=== PATIENT | female | born 1980 | race Caucasian/White ===

== ENCOUNTER 2016-08-11 18:36 | Emergency (ER) | payer OTHER | END 2016-08-11 21:10 | disposition home or self-care (01) | LOC: FER 18:36 | DX: J02.9 Acute pharyngitis, unspecified (principal); Z87.09 Personal history of other diseases of the respiratory system | CPT/HCPCS: 87450; J0561; J1100; J1885 ==

== ENCOUNTER 2020-06-29 11:36 | Emergency (ER) | payer OTHER ==
[~2020-06-29 11:36] MED LIST: ASPIRIN325 M1 PO; BACLOFEN 10MG T10 MG PO; BENTYL10 MG PO; NITROGLYCERIN0.4 MG SL
[2020-06-29 12:33] LABS: BILIRUBIN NEGATIVE (NEGATIVE); BLOOD NEGATIVE Ery/uL (NEGATIVE); CLARITY CLEAR (CLEAR); COLOR YELLOW (YELLOW); GLUCOSE (U) NORMAL (NORMAL); LEUKOCYTES NEGATIVE Leu/uL (NEGATIVE); NITRITE NEGATIVE (NEGATIVE); PROTEIN NEGATIVE (NEGATIVE); SPECIFIC GRAVITY 1.025 (1.001-1.030); UROBILINOGEN 0.2 mg/dL (0.2-1.0)
[2020-06-29 12:55] LABS: BASOPHIL 0.5 % (0-2); EOSINOPHIL 0.7 % (0-5); HCT 42.7 % (37.0-47.0); HGB 14.4 g/dl (12.5-16.0); LYMPHOCYTE 32.2 % (15-48); MCH 30.3 pg (25.0-31.0); MCHC 33.7 g/dL (32.0-36.0); MCV 89.7 fL (78.0-100.0); MONOCYTE 6.3 % (0-12); MPV 10.6 fL (6.0-9.5); NEUTROPHIL 60.2 % (41-80); NRBC 0; PLT 270 K/uL (150-400); RBC 4.76 M/uL (4.20-5.40); RDW 12.5 % (11.5-14.0); WBC 7.3 K/uL (4.0-10.5)
[2020-06-29 13:20] LABS: ALBUMIN 3.5 g/dL (3.4-5.0); BILIRUBIN - TOTAL 0.5 mg/dL (0.2-1.0); BUN/CREAT RATIO (CALC) 13.7 RATIO; CREATININE 0.73 mg/dL (0.51-0.95); GLOBULIN (CALCULATION) 3.3 g/dL; POTASSIUM 3.8 mmol/L (3.5-5.1); TOTAL PROTEIN 6.8 g/dL (6.4-8.2)
[2020-06-29] MEDS ORDERED: NAPROXEN500 MG PO (13:27)
[2020-06-29] MEDS ORDERED: ROBAXIN500 MG PO (13:27)
== END 2020-06-29 14:04 | disposition home or self-care (01) ==
LOC: FER 11:36
PROVIDERS: Emergency Medicine
DX: R10.12 Left upper quadrant pain (principal); R10.32 Left lower quadrant pain; M54.9 Dorsalgia, unspecified; R11.0 Nausea; M47.816 Spondylosis without myelopathy or radiculopathy, lumbar region; E66.9 Obesity, unspecified; I10 Essential (primary) hypertension; Z96.0 Presence of urogenital implants; Z87.442 Personal history of urinary calculi
CPT/HCPCS: 36415; 80053; 81003; 83690; 85025; J2270; J2405; J7030

== ENCOUNTER 2020-09-27 18:05 | Day surgery (SDCO) | payer OTHER ==
[~2020-09-27] VITALS: Ht 157.5 cm; Wt 90.7 kg
[~2020-09-27 18:05] MED LIST changes: +NAPROXEN500 MG PO; +ROBAXIN500 MG PO
[2020-09-27 19:42] LABS: BASOPHIL 0.4 % (0-2); EOSINOPHIL 0.6 % (0-5); HCT 40.9 % (37.0-47.0); HGB 14.1 g/dl (12.5-16.0); LYMPHOCYTE 26.3 % (15-48); MCH 31.4 pg (25.0-31.0); MCHC 34.5 g/dL (32.0-36.0); MCV 91.1 fL (78.0-100.0); MONOCYTE 6.5 % (0-12); MPV 10.1 fL (6.0-9.5); NEUTROPHIL 65.8 % (41-80); NRBC 0; PLT 284 K/uL (150-400); RBC 4.49 M/uL (4.20-5.40); RDW 12.6 % (11.5-14.0); WBC 12.6 K/uL (4.0-10.5)
[2020-09-27 19:56] LABS: BILIRUBIN NEGATIVE (NEGATIVE); BLOOD NEGATIVE Ery/uL (NEGATIVE); CLARITY CLEAR (CLEAR); COLOR YELLOW (YELLOW); GLUCOSE (U) NORMAL (NORMAL); LEUKOCYTES NEGATIVE Leu/uL (NEGATIVE); NITRITE NEGATIVE (NEGATIVE); PROTEIN NEGATIVE (NEGATIVE); SPECIFIC GRAVITY 1.025 (1.001-1.030); UROBILINOGEN 0.2 mg/dL (0.2-1.0)
[2020-09-27 20:00] LABS: ALBUMIN 3.7 g/dL (3.4-5.0); BILIRUBIN - TOTAL 0.5 mg/dL (0.2-1.0); BUN/CREAT RATIO (CALC) 24.7 RATIO; CREATININE 0.81 mg/dL (0.51-0.95); POTASSIUM 4.3 mmol/L (3.5-5.1); TOTAL PROTEIN 7.7 g/dL (6.4-8.2)
[2020-09-27] MEDS ORDERED: BACLOFEN 10MG T10 MG PO (23:53)
[2020-09-27] MEDS ORDERED: PRINIVIL20 MG PO (23:53)
[2020-09-28 05:51] LABS: BASOPHIL 0.4 % (0-2); EOSINOPHIL 1.4 % (0-5); HCT 37.1 % (37.0-47.0); HGB 12.6 g/dl (12.5-16.0); MCH 30.6 pg (25.0-31.0); MONOCYTE 6.4 % (0-12); MPV 10.7 fL (6.0-9.5); NEUTROPHIL 56.6 % (41-80); NRBC 0; PLT 233 K/uL (150-400); RBC 4.12 M/uL (4.20-5.40); RDW 12.5 % (11.5-14.0)
[2020-09-28 06:17] LABS: ALBUMIN 2.8 g/dL (3.4-5.0); BILIRUBIN - TOTAL 0.6 mg/dL (0.2-1.0); BUN/CREAT RATIO (CALC) 24.6 RATIO; CREATININE 0.69 mg/dL (0.51-0.95); GLOBULIN (CALCULATION) 3.3 g/dL; MAGNESIUM 1.7 mg/dL (1.8-2.4); POTASSIUM 3.9 mmol/L (3.5-5.1); TOTAL PROTEIN 6.1 g/dL (6.4-8.2)
[2020-09-29] MEDS ORDERED: PEPCID AC20 MG PO (08:21)
[2020-09-29] MEDS ORDERED: CARAFATE1 GM PO (08:21)
[2020-09-29] MEDS ORDERED: LIPITOR20 MG PO (08:21)
== END 2020-09-29 09:43 | disposition home or self-care (01) ==
LOC: FER 18:05 → FMS 21:56
PROVIDERS: Emergency Medicine; Nurse Practitioner; ADMIT Internal Medicine
DX: K85.90 Acute pancreatitis without necrosis or infection, unspecified (principal); E78.00 Pure hypercholesterolemia, unspecified; I10 Essential (primary) hypertension; N83.201 Unspecified ovarian cyst, right side; Z79.899 Other long term (current) drug therapy; Z87.442 Personal history of urinary calculi; Z20.822 Contact with and (suspected) exposure to COVID-19
CPT/HCPCS: 36415; 76705; 80053; 80061; 81003; 82150; 83605; 83690; 83735; 84100; 85025; 93005; 94010; C9113; G0378; G0480; J1170; J1885; J2405; J3475; J7030; Q9967; U0002

== ENCOUNTER 2020-11-27 13:36 | Emergency (ER) | payer OTHER ==
[~2020-11-27 13:36] MED LIST changes: +CARAFATE1 GM PO; +LIPITOR20 MG PO; +PEPCID AC20 MG PO; +PRINIVIL20 MG PO
[2020-11-27 14:32] LABS: BASOPHIL 0.5 % (0-2); EOSINOPHIL 0.7 % (0-5); HCT 43.1 % (37.0-47.0); HGB 14.2 g/dl (12.5-16.0); MCH 30.3 pg (25.0-31.0); MCHC 32.9 g/dL (32.0-36.0); MCV 92.1 fL (78.0-100.0); MONOCYTE 5.6 % (0-12); NEUTROPHIL 57.1 % (41-80); NRBC 0; PLT 321 K/uL (150-400); RBC 4.68 M/uL (4.20-5.40); RDW 12.4 % (11.5-14.0); WBC 8.6 K/uL (4.0-10.5)
[2020-11-27 14:37] LABS: INR 1.05 (0.9-1.2); PROTHROMBIN TIME 13.1 SECONDS (11.8-13.4); PTT 26.1 SECONDS (24.4-34.7)
[2020-11-27 14:42] LABS: ALBUMIN 3.6 g/dL (3.4-5.0); BILIRUBIN - TOTAL 0.5 mg/dL (0.2-1.0); BUN/CREAT RATIO (CALC) 25.3 RATIO; CREATININE 0.75 mg/dL (0.51-0.95); GLOBULIN (CALCULATION) 4.1 g/dL; POTASSIUM 4.2 mmol/L (3.5-5.1); TOTAL PROTEIN 7.7 g/dL (6.4-8.2)
[2020-11-27] MEDS ORDERED: ULTRAM50 MG PO (16:26)
[2020-11-27 16:36] LABS: BILIRUBIN NEGATIVE (NEGATIVE); BLOOD NEGATIVE Ery/uL (NEGATIVE); CLARITY CLEAR (CLEAR); COLOR YELLOW (YELLOW); GLUCOSE (U) NORMAL (NORMAL); LEUKOCYTES NEGATIVE Leu/uL (NEGATIVE); NITRITE NEGATIVE (NEGATIVE); PROTEIN NEGATIVE (NEGATIVE); SPECIFIC GRAVITY 1.025 (1.001-1.030); UROBILINOGEN 0.2 mg/dL (0.2-1.0)
== END 2020-11-27 17:23 | disposition home or self-care (01) ==
LOC: FER 13:36
PROVIDERS: Emergency Medicine
DX: R10.84 Generalized abdominal pain (principal); R11.2 Nausea with vomiting, unspecified
CPT/HCPCS: 36415; 80053; 81003; 83690; 85025; 85610; 85730; J1170; J2405; J7030

== ENCOUNTER 2020-12-01 14:11 | Emergency (ER) | payer OTHER ==
[~2020-12-01 14:11] MED LIST changes: +ULTRAM50 MG PO
[2020-12-01 16:08] LABS: BASOPHIL 0.4 % (0-2); EOSINOPHIL 0.6 % (0-5); HCT 43.3 % (37.0-47.0); HGB 14.1 g/dl (12.5-16.0); LYMPHOCYTE 35.8 % (15-48); MCH 30.4 pg (25.0-31.0); MCHC 32.6 g/dL (32.0-36.0); MCV 93.3 fL (78.0-100.0); MONOCYTE 5.7 % (0-12); MPV 10.2 fL (6.0-9.5); NEUTROPHIL 57.4 % (41-80); NRBC 0; PLT 337 K/uL (150-400); RBC 4.64 M/uL (4.20-5.40); RDW 12.7 % (11.5-14.0); WBC 8.5 K/uL (4.0-10.5)
[2020-12-01 16:10] LABS: BILIRUBIN NEGATIVE (NEGATIVE); BLOOD NEGATIVE Ery/uL (NEGATIVE); CLARITY CLEAR (CLEAR); COLOR YELLOW (YELLOW); GLUCOSE (U) NORMAL (NORMAL); LEUKOCYTES NEGATIVE Leu/uL (NEGATIVE); NITRITE NEGATIVE (NEGATIVE); PROTEIN NEGATIVE (NEGATIVE); SPECIFIC GRAVITY 1.025 (1.001-1.030); UROBILINOGEN 0.2 mg/dL (0.2-1.0)
[2020-12-01 16:22] LABS: ALBUMIN 3.7 g/dL (3.4-5.0); BILIRUBIN - TOTAL 0.5 mg/dL (0.2-1.0); BUN/CREAT RATIO (CALC) 22.7 RATIO; CREATININE 0.66 mg/dL (0.51-0.95); GLOBULIN (CALCULATION) 3.9 g/dL; POTASSIUM 4.6 mmol/L (3.5-5.1); TOTAL PROTEIN 7.6 g/dL (6.4-8.2)
== END 2020-12-01 17:12 | disposition home or self-care (01) ==
LOC: FER 14:11
PROVIDERS: Nurse Practitioner Family
DX: R10.32 Left lower quadrant pain (principal); R11.0 Nausea; I10 Essential (primary) hypertension; Z87.442 Personal history of urinary calculi
CPT/HCPCS: 36415; 80053; 81003; 82150; 83690; 85025; J1885; J7030

== ENCOUNTER 2021-01-03 11:45 | Emergency (ER) | payer OTHER ==
[2021-01-03 12:19] LABS: BASOPHIL 0.2 % (0-2); EOSINOPHIL 0 % (0-5); HCT 46.8 % (37.0-47.0); HGB 15.4 g/dl (12.5-16.0); LYMPHOCYTE 14.7 % (15-48); MCH 30.1 pg (25.0-31.0); MCHC 32.9 g/dL (32.0-36.0); MCV 91.6 fL (78.0-100.0); MONOCYTE 3.1 % (0-12); MPV 10.4 fL (6.0-9.5); NEUTROPHIL 81.7 % (41-80); NRBC 0; PLT 171 K/uL (150-400); RBC 5.11 M/uL (4.20-5.40); RDW 12.9 % (11.5-14.0); WBC 6.4 K/uL (4.0-10.5)
[2021-01-03 12:39] LABS: BILIRUBIN 1+ mg/dL (NEGATIVE); BLOOD TRACE-INTACT Ery/uL (NEGATIVE); CLARITY CLEAR (CLEAR); COLOR YELLOW (YELLOW); GLUCOSE (U) NORMAL (NORMAL); LEUKOCYTES NEGATIVE Leu/uL (NEGATIVE); NITRITE NEGATIVE (NEGATIVE); PROTEIN 2+ mg/dL (NEGATIVE); UROBILINOGEN 0.2 mg/dL (0.2-1.0)
[2021-01-03 12:49] LABS: BACTERIA 3+; SQUAMOUS EPITHELIAL CELLS RARE
[2021-01-03 13:10] LABS: ALBUMIN 3.4 g/dL (3.4-5.0); BILIRUBIN - TOTAL 0.3 mg/dL (0.2-1.0); BUN/CREAT RATIO (CALC) 19.2 RATIO; C-REACTIVE PROTEIN 12.8 mg/dL (<=0.90); CREATININE 0.73 mg/dL (0.51-0.95); POTASSIUM 3.3 mmol/L (3.5-5.1); TOTAL PROTEIN 7.4 g/dL (6.4-8.2)
[2021-01-03] MEDS ORDERED: VIBRAMYCIN100 MG PO (16:31)
[2021-01-03] MEDS ORDERED: VENTOLIN HFA IN18 GM INH (16:31)
== END 2021-01-03 17:30 | disposition home or self-care (01) ==
LOC: FER 11:45
PROVIDERS: Nurse Practitioner Family
DX: U07.1 COVID-19 (principal); J12.82 Pneumonia due to coronavirus disease 2019; R07.89 Other chest pain; I10 Essential (primary) hypertension; Z23 Encounter for immunization
CPT/HCPCS: 36415; 71275; 80053; 81001; 82728; 84145; 84484; 85025; 85379; 86140; 87088; J1100; J7030; M0243; Q0244; Q9967

== ENCOUNTER 2021-07-13 16:01 | Emergency (ER) | payer OTHER ==
[~2021-07-13 16:01] MED LIST changes: +VENTOLIN HFA IN18 GM INH; +VIBRAMYCIN100 MG PO
[2021-07-13 17:10] LABS: BASOPHIL 0.5 % (0-2); EOSINOPHIL 0.8 % (0-5); HCT 40.4 % (37.0-47.0); HGB 13.5 g/dl (12.5-16.0); LYMPHOCYTE 30.8 % (15-48); MCH 30.4 pg (25.0-31.0); MCHC 33.4 g/dL (32.0-36.0); MONOCYTE 6.9 % (0-12); MPV 9.9 fL (6.0-9.5); NEUTROPHIL 60.8 % (41-80); NRBC 0; PLT 285 K/uL (150-400); RBC 4.44 M/uL (4.20-5.40); WBC 10.1 K/uL (4.0-10.5)
[2021-07-13 17:39] LABS: ALBUMIN 3.4 g/dL (3.4-5.0); BILIRUBIN - TOTAL 0.3 mg/dL (0.2-1.0); BUN/CREAT RATIO (CALC) 10.4 RATIO; CREATININE 0.77 mg/dL (0.51-0.95); GLOBULIN (CALCULATION) 3.8 g/dL; POTASSIUM 3.7 mmol/L (3.5-5.1); TOTAL PROTEIN 7.2 g/dL (6.4-8.2)
[2021-07-13 18:28] LABS: BILIRUBIN NEGATIVE (NEGATIVE); BLOOD 2+ Ery/uL (NEGATIVE); COLOR YELLOW (YELLOW); GLUCOSE (U) NORMAL (NORMAL); LEUKOCYTES NEGATIVE Leu/uL (NEGATIVE); NITRITE NEGATIVE (NEGATIVE); PROTEIN NEGATIVE (NEGATIVE); SPECIFIC GRAVITY >=1.030 (1.001-1.030); UROBILINOGEN 0.2 mg/dL (0.2-1.0)
[2021-07-13 18:34] LABS: CLARITY SLIGHTLY HAZY (CLEAR)
[2021-07-13 18:37] LABS: BACTERIA TRACE; CALCIUM OXALATE CRYSTALS TRACE; YEAST PRESENT
[2021-07-13] MEDS ORDERED: ONDANSETRON ODT4 MG PO (19:21)
== END 2021-07-13 19:45 | disposition home or self-care (01) ==
LOC: FER 16:01
PROVIDERS: Nurse Practitioner Family
DX: R10.13 Epigastric pain (principal); R10.12 Left upper quadrant pain; R11.10 Vomiting, unspecified; R19.7 Diarrhea, unspecified; I10 Essential (primary) hypertension; J45.909 Unspecified asthma, uncomplicated; Z79.899 Other long term (current) drug therapy; Z28.310 Unvaccinated for COVID-19
CPT/HCPCS: 36415; 80053; 81001; 83690; 85025; J2270; J2405; J7030; Q9967